=== PATIENT | female | born 1975 ===

== ENCOUNTER 2018-08-02 17:25 | Emergency (ER) | payer OTHER ==
[2018-08-02] MEDS ORDERED: PrednisoLONE 6 MG/2 ML SYR PO STA (18:35)
[2018-08-02] MEDS ORDERED: DiphenhydrAMINE 50 mg/ml Inj IVP STA (18:35)
[2018-08-02] MEDS ORDERED: DiphenhydrAMINE 50 mg/ml Inj ONE (18:44)
[2018-08-02 18:48] LABS: SQUAMOUS EPITHIAL 1 /hpf (0-5); URINE BACTERIA OCC (<OCC); URINE BILIRUBIN NEGATIVE (NEGATIVE); URINE BLOOD 3+ (NEGATIVE); URINE CLARITY Hazy (Clear); URINE COLOR Yellow (YELLOW); URINE GLUCOSE (UA) NORMAL (Normal); URINE LEUKOCYTE ESTERASE NEG Leu/uL (Negative); URINE PROTEIN 1+ mg/dL (NEGATIVE); URINE UROBILINOGEN NORMAL mg/dL (0.2-1.0)
[2018-08-02 18:49] LABS: BASO % 0.5 % (0.0-2.0); EOS # 0.1 K/uL (0.0-0.7); EOS % 0.7 % (0.0-4.0); HEMOGLOBIN 12.8 g/dL (11.0-16.0); LYMPH # 1.6 K/uL (1.0-4.3); LYMPH % 20.9 % (20.0-40.0); MEAN CELL VOLUME 78.9 fL (81.0-99.0); MEAN CORPUSCULAR HEMOGLOBIN 24.5 pg (27.0-31.0); MEAN CORPUSCULAR HGB CONC 31.1 g/dL (33.0-37.0); MEAN PLATELET VOLUME 8.8 fL (7.2-11.7); MONO # 0.3 K/uL (0.0-0.8); NEUT # 5.8 K/uL (1.8-7.0); NEUT % 73.9 % (50.0-75.0); RBC 5.23 Mil/uL (3.80-5.20); RED CELL DISTRIBUTION WIDTH 16.9 % (11.5-14.5); WHITE BLOOD COUNT 7.9 K/uL (4.8-10.8)
--- NOTE | 2018-08-02 18:50 | C.PDOC ---
History Of Present Illness 43 year old female presents to ED for medical evaluation of abdominal pain x 3 days. She states that she developed abdominal pain after eating plantain and pork chops on Friday and vomited 4 times that day. She reports worsening of abdominal pain when eating and rates it a 9/10. She denies fever, chills, headache, dizziness, diarrhea, and chest pain. In addition she reports "skin rash" diffusely throughout the body for "several months." She had been seen in [facility] for this issue in [place] and was told that it may be food allergies but inconclusive. She was also noted to have "parasites in stomach" and treated with Albendazole x 7 days. She is currently on cetirizine and hydralazine with little relief. Patient is a poor historian. 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 denies: Fever, Chills, Diarrhea, Chest Pain, Constipation, Urinary Symptoms Exacerbating Factors: Movement, Food Alleviating Factors: None Last Bowel Movement: Yesterday Recent travel outside of the [place]: No <Av Yun - Last Filed: 08/02/18 20:23> <Hector Borges - Last Filed: 08/02/18 22:19> Time Seen by Provider: 08/02/18 17:45 Chief Complaint (Nursing): Abdominal Pain Past Medical History Reviewed: Historical Data, Nursing Documentation, Vital Signs Vital Signs: Last Vital Signs Temp 98.5 F 08/02/18 17:29 Pulse 78 08/02/18 17:29 Resp 20 08/02/18 17:29 BP 129/75 08/02/18 17:29 Pulse Ox 100 08/02/18 17:29 - Medical History PMH: HTN Family History: States: Unknown Family Hx - Social History Hx Tobacco Use: No Hx Alcohol Use: No Hx Substance Use: No - Immunization History Hx Influenza Vaccination: No <Av Yun - Last Filed: 08/02/18 20:23> Vital Signs: Last Vital Signs Temp 98.5 F 08/02/18 17:29 Pulse 78 08/02/18 17:29 Resp 20 08/02/18 17:29 BP 129/75 08/02/18 17:29 Pulse Ox 100 08/02/18 20:25 <Hector Borges R - Last Filed: 08/02/18 22:19> Review Of Systems Constitutional: Negative for: Fever, Chills Cardiovascular: Negative for: Chest Pain Respiratory: Negative for: Cough Gastrointestinal: Positive for: Nausea, Vomiting, Abdominal Pain. Negative for: Diarrhea Genitourinary: Negative for: Dysuria Musculoskeletal: Negative for: Back Pain Skin: Positive for: Rash Neurological: Negative for: Headache, Dizziness <Av Yun - Last Filed: 08/02/18 20:23> Physical Exam - Physical Exam Appears: Non-toxic, No Acute Distress Skin: Rash (diffuse, erythematic, papular rash over extremeties, trunk, and back) Head: Atraumatic, Normacephalic Eye(s): bilateral: Normal Inspection, PERRL Throat: No Erythema, No Exudate Neck: Normal ROM, Supple Chest: Symmetrical Cardiovascular: Rhythm Regular Respiratory: Normal Breath Sounds Gastrointestinal/Abdominal: Bowel Sounds, Soft, Tenderness (mainly epigastric) Back: No CVA Tenderness Extremity: Bilateral: Atraumatic, Normal ROM Neurological/Psych: Oriented x3, Normal Speech, Normal Sensation Gait: Steady <Av Yun - Last Filed: 08/02/18 20:23> ED Course And Treatment - Laboratory Results Result Diagrams: 08/02/18 18:32 08/02/18 18:32 O2 Sat by Pulse Oximetry: 100 <Av Yun - Last Filed: 08/02/18 20:23> - Laboratory Results Result Diagrams: 08/02/18 18:32 08/02/18 18:32 Lab Results: Total Bilirubin 0.4 mg/dL (0.2-1.3) 08/02/18 18:32 AST 17 U/L (14-36) 08/02/18 18:32 ALT 12 U/L (9-52) 08/02/18 18:32 Alkaline Phosphatase 67 U/L (38-126) 08/02/18 18:32 Total Protein 7.5 g/dL (6.3-8.3) 08/02/18 18:32 Albumin 4.2 g/dL (3.5-5.0) 08/02/18 18:32 Globulin 3.4 gm/dL (2.2-3.9) 08/02/18 18:32 Albumin/Globulin Ratio 1.2 (1.0-2.1) 08/02/18 18:32 Lipase 70 U/L (23-300) 08/02/18 18:32 Urine Color Yellow (YELLOW) 08/02/18 18:32 Urine Clarity Hazy (Clear) 08/02/18 18:32 Urine pH 5.0 (5.0-8.0) 08/02/18 18:32 Ur Specific Aiken 1.019 (1.003-1.030) 08/02/18 18:32 Urine Protein 1+ mg/dL (NEGATIVE) H 08/02/18 18:32 Urine Glucose (UA) Normal mg/dL (Normal) 08/02/18 18:32 Urine Ketones Negative mg/dL (NEGATIVE) 08/02/18 18:32 Urine Blood 3+ (NEGATIVE) H 08/02/18 18:32 Urine Nitrate Negative (NEGATIVE) 08/02/18 18:32 Urine Bilirubin Negative (NEGATIVE) 08/02/18 18:32 Urine Urobilinogen Normal mg/dL (0.2-1.0) 08/02/18 18:32 Ur Leukocyte Esterase Neg Devaughn/uL (Negative) 08/02/18 18:32 Urine WBC (Auto) 5 /hpf (0-5) 08/02/18 18:32 Urine RBC (Auto) 1249 /hpf (0-3) H 08/02/18 18:32 Ur Squamous Epith Cells 1 /hpf (0-5) 08/02/18 18:32 Urine Bacteria Occ (<OCC) H 08/02/18 18:32 <Hector Borges - Last Filed: 08/02/18 22:19> Medical Decision Making Medical Decision Making: Abdominal pain, Rash Plan: Labs UA CT abd/pelvis w/ contrast Pepcid, Pred, and Zofran given <Av Yun - Last Filed: 08/02/18 20:23> Disposition - Disposition Disposition Time: 20:24 <Av Yun - Last Filed: 08/02/18 20:23> Counseled Patient/Family Regarding: Diagnosis - Disposition Disposition Time: 22:12 <Hector Borges - Last Filed: 08/02/18 22:19> - Disposition Referrals: [facility] at [facility] [Outside] Disposition: HOME/ ROUTINE Condition: STABLE Prescriptions: Dicyclomine [Bentyl] 10 mg PO TID #20 cap Instructions: Viral Gastroenteritis, Uterine Fibroids (DC) Forms: [email or web address]. 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 <Av Yun - Last Filed: 08/02/18 20:23> Physician Patient Turnover Patient Signed Over To: Hector Borges Handoff Comments: pending CT results <Av Yun - Last Filed: 08/02/18 20:23>
[2018-08-02 18:55] LABS: ALB/GLOB RATIO 1.2 (1.0-2.1); ALBUMIN 4.2 g/dL (3.5-5.0); ALT/SGPT 12 U/L (9-52); AST/SGOT 17 U/L (14-36); BLOOD UREA NITROGEN 10 mg/dL (7-17); CALCIUM 8.9 mg/dl (8.6-10.4); GFR NON-AFRICAN AMERICAN > 60; LIPASE 70 U/L (23-300)
[2018-08-02] MEDS ORDERED: Iohexol 240 (50 ml) ONE (19:16)
[2018-08-02] MEDS ORDERED: Iohexol 240 (50 ml) PO ONE (19:20)
[2018-08-02] MEDS ORDERED: Iodixanol 320 MG/ML 100 ML BOTTLE IV ONE (20:03)
[2018-08-02 22:43] VITALS: BP 106/69; PULSE 67; RESP 16; TEMP 98.1; O2SAT 97
--- NOTE | 2018-08-03 11:10 | CT ---
Date of service: 08/02/2018 PROCEDURE: CT Abdomen and Pelvis with contrast HISTORY: abdominal pain; vomiting COMPARISON: None available. TECHNIQUE: CT scan of the abdomen and pelvis was performed after administration of intravenous contrast. Oral contrast was administered. Coronal and sagittal reformatted images were obtained. Contrast dose: 100 mL Visipaque 320 Radiation dose: Total exam DLP = 1122.9 mGy-cm. This CT exam was performed using one or more of the following dose reduction techniques: Automated exposure control, adjustment of the mA and/or kV according to patient size, and/or use of iterative reconstruction technique. FINDINGS: LOWER THORAX: The visualized lungs are clear. LIVER: Mild hepatomegaly. Homogeneous enhancement. No gross lesion or ductal dilatation. GALLBLADDER AND BILE DUCTS: Well distended. No calcified gallstones, wall thickening or pericholecystic fluid. PANCREAS: Normal in size with homogeneous enhancement. No gross lesion or ductal dilatation. SPLEEN: Normal in size and appearance. ADRENALS: No discrete nodule. KIDNEYS AND URETERS: Normal in size with homogeneous enhancement. No hydronephrosis. No solid mass. VASCULATURE: No aortic aneurysm. There are no aortic atherosclerotic calcifications or mural plaque present. BOWEL: The small bowel loops are normal in caliber. The colon is grossly normal in appearance. No bowel wall thickening or obstruction. APPENDIX: Normal appendix. PERITONEUM: No free fluid. No free air. LYMPH NODES: No enlarged lymph nodes. BLADDER: Well distended and normal in appearance. REPRODUCTIVE: The uterus is normal in size. There is a 5.0 x 3.5 cm heterogeneously enhancing low-attenuation mass in the posterior wall of the lower uterine segment. BONES: No acute fracture. Degenerative disc disease at L5-S1. OTHER FINDINGS: None. IMPRESSION: 1. 5.0 x 3.5 cm heterogeneously hypoenhancing mass in the posterior wall of the lower uterine segment, nonspecific and could represent degenerating fibroid versus neoplasm. Correlation with pelvic ultrasound is recommended. 2. Mild hepatomegaly. A preliminary report was provided by [employer].. The final report is tagged to the PA review folder.
== END 2018-08-02 22:43 | disposition home or self-care (01) ==
LOC: C.ER 17:25
DX: K52.9 Noninfective gastroenteritis and colitis, unspecified (principal); D25.9 Leiomyoma of uterus, unspecified; R10.13 Epigastric pain
CPT/HCPCS: 74177; 80053; 81001; 81025; 83690; 85025; 96374; 96375; 99285; J1200; J2270; J2405; J7510; Q9966; Q9967

== ENCOUNTER → 2018-08-22 | Outpatient (CLI) | payer OTHER | LOC: C.LAB 11:56 | DX: I10 Essential (primary) hypertension (principal); T78.40XS Allergy, unspecified, sequela; E01.0 Iodine-deficiency related diffuse (endemic) goiter; E87.6 Hypokalemia ==

== ENCOUNTER 2018-09-08 09:17 | Emergency (ER) | payer OTHER ==
[2018-09-08 09:33] VITALS: RESP 18; TEMP 98.5; O2SAT 100
[2018-09-08] MEDS ORDERED: Sodium Chloride 0.9% 1,000 ML IV ONE (10:20)
--- NOTE | 2018-09-08 10:21 | C.PDOC ---
History Of Present Illness 43 year old female, whose past medical history includes intermittent allergic urticaria, presents to the ED for evaluation of a rash and throat swelling which gradually developed after eating "very spicy food" at work a few days ago. Patient is also complaining of some nonspecific, intermittent, diffuse abdominal cramping " for past few weeks". Otherwise, pt denies fever, chills, headache, dizziness, drooling, dysphagia, dyspnea, shortness of breath, chest pain, wheezing, palpittaion, nausea, vomiting, diarrhea, UTI sx. At present time, appears comfortable, not in any apparent distress.. Time Seen by Provider: 09/08/18 09:31 Chief Complaint (Nursing): Allergic Reaction History Per: Patient History/Exam Limitations: no limitations Onset/Duration Of Symptoms: Days, Gradual Current Symptoms Are (Timing): Still Present Context: Food Possible Cause: Food Associated Symptoms: Skin Rash, Other (throat swelling ) Additional History Per: Patient Past Medical History Reviewed: Historical Data, Nursing Documentation, Vital Signs Vital Signs: Last Vital Signs Temp 98.5 F 09/08/18 09:30 Pulse 79 09/08/18 09:30 Resp 18 09/08/18 09:30 BP 133/81 09/08/18 09:30 Pulse Ox 100 09/08/18 09:30 - Medical History PMH: HTN Surgical History: No Surg Hx Family History: States: Unknown Family Hx - Social History Hx Tobacco Use: No Hx Alcohol Use: No Hx Substance Use: No - Immunization History Hx Tetanus Toxoid Vaccination: No Hx Influenza Vaccination: No Review Of Systems Constitutional: Negative for: Fever, Chills ENT: Positive for: Throat Swelling Cardiovascular: Negative for: Chest Pain Respiratory: Negative for: Cough, Shortness of Breath Gastrointestinal: Positive for: Abdominal Pain (nonspecific, diffuse ). Negative for: Nausea, Vomiting, Diarrhea Skin: Positive for: Rash Physical Exam - Physical Exam Appears: Non-toxic, No Acute Distress Skin: Warm, Dry, Rash (scattered, generalized urticaria ) Head: Normacephalic Eye(s): bilateral: PERRL Ear(s): Bilateral: Normal Nose: No Flaring, No Discharge Oral Mucosa: Moist, No Drooling Tongue: No Swelling Lips: No Swelling Throat: No Erythema, No Exudate, No Drooling, Other (raspy voice noted. uvula is midline, no edema ) Neck: Normal ROM, Supple Cardiovascular: Rhythm Regular, No Murmur, No JVD Respiratory: No Decreased Breath Sounds, No Accessory Muscle Use, No Rales, No Rhonchi, No Stridor, No Wheezing Gastrointestinal/Abdominal: Soft, No Tenderness, No Distention, No Guarding, No Rebound Back: No CVA Tenderness Extremity: Normal ROM, Capillary Refill (less than 2 seconds ), No Swelling Neurological/Psych: Oriented x3, Normal Speech, Normal Cognition ED Course And Treatment - Laboratory Results Result Diagrams: 09/08/18 10:31 09/08/18 10:31 Lab Interpretation: No Acute Changes O2 Sat by Pulse Oximetry: 100 (on RA) Pulse Ox Interpretation: Normal Progress Note: Bloodwork and urinalysis ordered and reviewed. Pepcid IVP, Protonix IVP, Solu-Medrol IVP and IV Fluids given. Pt was OBS in ED for 2.5 hrs and remained stable. Pt reports, mod improvement in sx, skin urticaria improved. On re-eval, pt is resting comofrtably, not in any apparent distress. Afebrile, hemodynamicaly stable. Non-toxic. Pt was given PO challenge, tolearte well, (-) vomtiing. [id number]% RA. ENT: No acute findings, uvula midline, no edema. neck: SUpple, (-) JVD, (-) meningeal sign. Lungs: CTA B/L, BS equal B/L. CVS: (+)S1S2, reg. ABd: benign, (-) guarding, (-) rebound. Back: (-) CVA tenderness. Pt has clinical findings c/w allergic urticaria. pt advised to avoid food cause allergic reaction. ref. to F/u with PMD, sheriff detective in 1-2 days for re-eavl. return to ED if any worsening or new changes. Disposition Counseled Patient/Family Regarding: Studies Performed, Diagnosis, Need For Followup, Rx Given - Disposition Referrals: Farhana Fowler MD [Staff Provider] - Disposition: HOME/ ROUTINE Disposition Time: 12:00 Condition: STABLE Additional Instructions: STOP/AVOID FOOD THAT GIVE YOU ALLERGIC REACTION TAKE MEDICATION PRESCRIBED FOLLOW UP WITH PMD, OCCUPATIONAL THERAPY SPECIALIST IN 2-3 DAYS FOR RE-EVALUATION. RETURN TO ED IF ANY WORSENING OR NEW CHANGES. 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 - Scribe Statement The provider has reviewed the documentation as recorded by the Scribe (Lisa Gutierrez) All medical record entries made by the Scribe were at my direction and personally dictated by me. I have reviewed the chart and agree that the record a ccurately reflects my personal performance of the history, physical exam, medical decision making, and the department course for this patient. I have also personally directed, reviewed, and agree with the discharge instructions and disposition.
[2018-09-08 10:47] LABS: BASO % 0.1 % (0.0-2.0); EOS # 0.1 K/uL (0.0-0.7); EOS % 1.5 % (0.0-4.0); HEMOGLOBIN 12.4 g/dL (11.0-16.0); LYMPH # 1.6 K/uL (1.0-4.3); LYMPH % 22.1 % (20.0-40.0); MEAN CELL VOLUME 78.1 fL (81.0-99.0); MEAN CORPUSCULAR HEMOGLOBIN 24.6 pg (27.0-31.0); MEAN CORPUSCULAR HGB CONC 31.5 g/dL (33.0-37.0); MEAN PLATELET VOLUME 8.8 fL (7.2-11.7); MONO # 0.2 K/uL (0.0-0.8); MONO % 3.4 % (0.0-10.0); NEUT # 5.2 K/uL (1.8-7.0); NEUT % 72.9 % (50.0-75.0); RBC 5.05 Mil/uL (3.80-5.20); WHITE BLOOD COUNT 7.1 K/uL (4.8-10.8)
[2018-09-08 11:07] LABS: ALB/GLOB RATIO 1.4 (1.0-2.1); ALBUMIN 4.2 g/dL (3.5-5.0); ALT/SGPT 13 U/L (9-52); AST/SGOT 17 U/L (14-36); BLOOD UREA NITROGEN 12 mg/dL (7-17); CALCIUM 9.5 mg/dl (8.6-10.4); GFR NON-AFRICAN AMERICAN > 60
[2018-09-08 12:38] LABS: HCG,QUALITATIVE URINE NEGATIVE (NEGATIVE); SQUAMOUS EPITHIAL 1 /hpf (0-5); URINE BILIRUBIN NEGATIVE (NEGATIVE); URINE BLOOD 2+ (NEGATIVE); URINE CLARITY Clear (Clear); URINE COLOR Straw (YELLOW); URINE GLUCOSE (UA) NORMAL (Normal); URINE LEUKOCYTE ESTERASE NEG Leu/uL (Negative); URINE PROTEIN NEGATIVE (NEGATIVE); URINE UROBILINOGEN NORMAL mg/dL (0.2-1.0)
[2018-09-08 12:41] VITALS: BP 126/80; PULSE 70
== END 2018-09-08 13:00 | disposition home or self-care (01) ==
LOC: C.ER 09:17
DX: L50.0 Allergic urticaria (principal)
CPT/HCPCS: 80053; 81001; 84703; 85025; 96361; 96374; 96375; 99284; C9113; J2930; J7030

== ENCOUNTER 2018-09-24 16:41 | Emergency (ER) | payer OTHER ==
[2018-09-24 16:54] VITALS: BP 127/71; PULSE 79; RESP 20; TEMP 98.8; O2SAT 99
--- NOTE | 2018-09-24 17:17 | C.PDOC ---
History Of Present Illness 43-year-old female presents to the ED for evaluation of diffuse, urticarial rash on her body. Patient was evaluated in this ED for similar symptoms on 09/08. She has also followed up in the clinic and they have already ordered allergy testing. Patient reports that her itchy rash persists and requests refill of her previous medications. She denies fever, chills, tongue/throat swelling, sensation of throat closing up, cough, shortness of breath. Time Seen by Provider: 09/24/18 17:13 Chief Complaint (Nursing): Abnormal Skin Integrity History Per: Patient History/Exam Limitations: no limitations Onset/Duration Of Symptoms: Days Current Symptoms Are (Timing): Still Present Associated Symptoms: denies: Fever, Chills, Cough Severity: Mild Additional History Per: Patient Past Medical History Reviewed: Historical Data, Nursing Documentation, Vital Signs Vital Signs: Last Vital Signs Temp 98.8 F 09/24/18 16:50 Pulse 79 09/24/18 16:50 Resp 20 09/24/18 16:50 BP 127/71 09/24/18 16:50 Pulse Ox 99 09/24/18 16:50 - Medical History PMH: HTN Surgical History: No Surg Hx Family History: States: No Known Family Hx - Social History Hx Tobacco Use: No Hx Alcohol Use: No Hx Substance Use: No - Immunization History Hx Tetanus Toxoid Vaccination: No Hx Influenza Vaccination: No Review Of Systems Constitutional: Negative for: Fever, Chills ENT: Negative for: Nose Congestion, Mouth Swelling, Throat Pain, Throat Swelling Respiratory: Negative for: Cough, Shortness of Breath Gastrointestinal: Negative for: Nausea, Vomiting Skin: Positive for: Rash (diffuse, urticaria, itchy ) Neurological: Negative for: Weakness, Numbness, Headache, Dizziness Physical Exam - Physical Exam Appears: Well, Non-toxic, No Acute Distress Skin: Warm, Dry, Rash (mild, diffuse urticarial rash on torso, extremities, blanching ) Head: Atraumatic, Normacephalic Eye(s): bilateral: Normal Inspection Nose: Normal Oral Mucosa: Moist Tongue: Normal Appearing, No Swelling Lips: Normal Appearing, No Swelling Throat: Normal, No Erythema, No Exudate, No Drooling Neck: Normal ROM, Supple Cardiovascular: Rhythm Regular Respiratory: Normal Breath Sounds, No Rales, No Rhonchi, No Wheezing, Other (speaking in full sentences ) Extremity: Normal ROM, No Pedal Edema Neurological/Psych: Oriented x3 ED Course And Treatment O2 Sat by Pulse Oximetry: 99 (on RA) Pulse Ox Interpretation: Normal Progress Note: Patient is comfortable, with mild urticarial rash only. Rxs for Prednisone, Claritin and Pepcid given. Patient instructed to follow up with medical clinic in in 1-2 days, and understands she should return to ED if symptoms worsen. Disposition Counseled Patient/Family Regarding: Diagnosis, Need For Followup, Rx Given - Disposition Referrals: [facility] at [facility] [Outside] Disposition: HOME/ ROUTINE Disposition Time: 17:15 Condition: STABLE Prescriptions: Famotidine [Pepcid] 20 mg PO BID PRN #15 tab PRN Reason: abdominal Loratadine [Claritin] 10 mg PO DAILY PRN #30 tab PRN Reason: Itching / Pruritus predniSONE [predniSONE Tab] 40 mg PO DAILY #8 tab Instructions: Hives (DC) Forms: [employer] (Portuguese) Print Language: ALBANIAN - Clinical Impression Clinical Impression: Allergic urticaria, Medication refill - Scribe Statement The provider has reviewed the documentation as recorded by the Scribe (Lisa Gutierrez) Provider Attestation: All medical record entries made by the Scribe were at my direction and personally dictated by me. I have reviewed the chart and agree that the record accurately reflects my personal performance of the history, physical exam, medical decision making, and the department course for this patient. I have also personally directed, reviewed, and agree with the discharge instructions and disposition.
== END 2018-09-24 17:23 | disposition home or self-care (01) ==
LOC: C.ER 16:41
DX: L50.0 Allergic urticaria (principal); Z76.0 Encounter for issue of repeat prescription